=== PATIENT | female | born 1960 | race Caucasian/White ===

== ENCOUNTER 2017-03-31 23:38 | Inpatient (IN) | payer OTHER ==
[~2017-03-31] VITALS: Ht 152.4 cm; Wt 63.0 kg
[~2017-03-31 23:38] MED LIST: ASPI-664 PO; DIPH25CA42 PO; DOCU-144 PO; ERGO500014 PO; ESCI5TAB10 PO; FLUT16SP17 NASAL; HYDR-762 PO; HYDR25SU23 PR; NITR-58 PO; POLY17PO6 PO; TRAM-40 PO; TRAZ50TA18 PO; ZOLP5TAB PO
[2017-04-01] MEDS ORDERED: ONDANSETRON 4 MG INJ IV STA (00:33)
[2017-04-01] MEDS ORDERED: morphine 4 MG/ML VIAL IV STA (00:33)
--- NOTE | 2017-04-01 01:06 | RADRPT ---
PROCEDURE: CHEST - 1 VIEW CLINICAL INDICATION: 56-year-old female with chest pain. TECHNIQUE: A single frontal AP semi-erect portable view of the chest was performed. The images we re reviewed on a PACS workstation. COMPARISON: CR CHEST 01/31/2016; CR PORTABLE CHEST 05/16/2008 FINDINGS: The cardiomediastinal silhouette is within normal limits. There is linear subsegmental atelectasis w ithin the left lower lung zone. There is no evidence for an infiltrate. There is no evidence for c ongestive heart failure. There is no evidence for pneumothorax. The osseous structures are intact. IMPRESSION: Linear left lower lung zone subsegmental atelectasis. .Pollo Weaver MD, MD Date Time Electronically viewed and signed by .Pollo Weaver MD, on 04/01/2017 01:06 .Marques/
[2017-04-01] MEDS ORDERED: HYDROmorphONE 1 MG/ML SYG IV STA (01:07)
[2017-04-01 01:30] LABS: BASOPHILS % 0.2 % (0.0-2.0); EOSINOPHILS # 0.2 10^3/ul (0.0-0.5); EOSINOPHILS % 2.9 % (0.0-7.0); HEMATOCRIT 36.5 % (37.0-47.0); HEMOGLOBIN 12.2 g/dl (12.0-16.0); LYMPHOCYTES # 1.5 10^3/ul (0.8-2.9); LYMPHOCYTES % 23.5 % (15.0-51.0); MEAN CORPUSCULAR HGB CONC 33.4 g/dl (32.0-37.0); MEAN CORPUSCULAR VOLUME 98.6 fl (82.0-101.0); MEAN PLATELET VOLUME 10.4 fl (7.4-10.4); MONOCYTE # 0.6 10^3/ul (0.3-0.9); MONOCYTES % 8.4 % (0.0-11.0); NEUTROPHIL # 4.2 10^3/ul (1.6-7.5); NEUTROPHILS % 64.7 % (39.0-77.0); PLATELET COUNT 265 10^3/UL (140-415); RED CELL DISTRIBUTION WIDTH 12.4 % (11.5-14.5); WHITE BLOOD COUNT 6.6 10^3/ul (4.8-10.8)
--- NOTE | 2017-04-01 01:52 | RADRPT ---
PROCEDURE: US left lower extremity venous Doppler CLINICAL INDICATION: Swelling TECHNIQUE: Multiple sonographic images of the left lower extremity deep venous system was obtained utilizing grayscale, color-flow, compressive sonography and Doppler imaging with augmentation. COMPARISON: No pertinent prior examinations were submitted for comparison. FINDINGS: There is normal compressibility and flow within the left common femoral, superficial femoral, poplit eal, and calf veins. IMPRESSION: No sonographic evidence for left deep venous thrombosis. RPTAT: HIKT .Ramon Patel MD, MD Date Time Electronically viewed and signed by .Ramon Patel MD, on 04/01/2017 01:52 .T/
[2017-04-01] MEDS ORDERED: PIPER-TAZO 3.375 GM IV (PMX) 50 ML IVPB STA (02:15)
[2017-04-01 02:17] LABS: ALANINE AMINOTRANSFERASE 21 IU/L (13-69); ALBUMIN 4.1 g/dl (3.3-4.9); ALBUMIN/GLOBULIN RATIO 1.24; ALKALINE PHOSPHATASE 70 IU/L (42-121); ANION GAP 12 (8-16); ASPARTATE AMINO TRANSFERASE 25 IU/L (15-46); BILIRUBIN,INDIRECT 0.2 mg/dl (0-1.1); BILIRUBIN,TOTAL 0.2 mg/dl (0.2-1.3); BLOOD UREA NITROGEN 16 mg/dl (7-20); CALCIUM 9.1 mg/dl (8.4-10.2); CARBON DIOXIDE 29 mmol/L (21-31); CHLORIDE 108 mmol/L (97-110); CREATININE 0.78 mg/dl (0.44-1.00); GLUCOSE 99 mg/dl (70-220); POTASSIUM 3.8 mmol/L (3.5-5.1); SODIUM 145 mmol/L (135-144); TOTAL PROTEIN 7.4 g/dl (6.1-8.1)
--- NOTE | 2017-04-01 02:26 | ERD ---
ER Documentation Chief Complaint Chief Complaint LF UPPER THIGH SWELLING WITH BURNING PAIN X 3 DAYS, HX OF CANCER HPI 48-year-old female left upper thigh swelling and burning pain for 3 days. Patient is at his has been coming on over the past few weeks. Now it is erythematous and indurated and red in the upper thigh. No fevers or chills. No nausea no vomiting. No trauma. No other current complaints. Patient has remote history of ovarian cancer. ROS All systems reviewed and are negative except as per history of present illness. Medications Home Meds Active Scripts Nitrofurantoin Monohyd Macrocr* (Macrobid*) 100 Mg Capsr, 100 MG PO BID for 7 Days, CAP Prov:BEAR PEÑA NP 03/15/16 Hydrocortisone Acetate (Anusol-Hc) 25 Mg Supp.rect, 1 SUPP NM QHS Y for HEMORROID PAIN/ITCHING, #12 SUPP.RECT Prov:BEAR PEÑA NP 03/15/16 Docusate Sodium* (Colace*) 100 Mg Capsule, 100 MG PO TID, #30 CAP Prov:BEAR PEÑA NP 03/15/16 Polyethylene Glycol* (Miralax*) 17 Gm Powd.pack, 17 GM PO DAILY, #7 Prov:BEAR PEÑA NP 03/15/16 Aspirin* (Aspirin* EC) 81 Mg Tablet.dr, 162 MG PO DAILY for 30 Days, #30 TAB Prov:JONI GOLDMAN S. 02/02/16 Tramadol Hcl* (Ultram*) 50 Mg Tablet, 50 MG PO Q12 Y for PAIN for 30 Days, #60 TAB Prov:JONI GOLDMAN S. 02/02/16 Reported Medications Fluticasone Propionate* (Fluticasone Propionate* Nasal) 50 Mcg/[place] - 16 Gm [place].susp, 1 SPRAY NASAL BID, #1 BOTTLE TO EACH NOSTRIL 01/31/16 Diphenhydramine Hcl (Banophen) 25 Mg Capsule, 25 MG PO DAILY, CAP 01/31/16 Trazodone Hcl* (Trazodone Hcl*) 50 Mg Tablet, 50 MG PO QHS, #30 TAB 01/31/16 Ergocalciferol* (Drisdol* (Vitamin D2)) 50,000 Unit Capsule, 59174 UNIT PO Q7D, CAP 01/31/16 Escitalopram Oxalate* (Escitalopram Oxalate*) 5 Mg Tablet, 5 MG PO DAILY, #30 TAB 01/31/16 Zolpidem Tartrate* (Ambien*) 5 Mg Tablet, 5 MG PO QHS Y for INSOMNIA, #30 TAB 05/02/15 Hydrocodone Bit-Acetaminophen* ([place]*) 10-325 Mg Tablet, 1 TAB PO DAILY Y for PAIN, TAB 05/02/15 Allergies Allergies: Coded Allergies: morphine (Unverified Allergy, Severe, HALLUCINATION, 04/01/17) PMhx/Soc History of Surgery: Yes (OVARIES REMOVED S/P CANCER) Anesthesia Reaction: No Hx Neurological Disorder: No Hx Respiratory Disorders: No Hx Cardiac Disorders: No Hx Psychiatric Problems: No Hx Miscellaneous Medical Probl: Yes (INSOMNIA, HTN) Hx Alcohol Use: No Hx Substance Use: No Hx Tobacco Use: No Smoking Status: Never smoker Physical Exam Vitals Vital Signs Date Time Temp Pulse Resp B/P Pulse Ox O2 Delivery O2 Flow Rate FiO2 04/01/17 01:38 98.1 83 17 124/72 100 Room Air 04/01/17 00:30 Nasal Cannula 2 03/31/17 23:47 97.6 73 20 149/67 99 Physical Exam Const: [] Head: Atraumatic Eyes: Normal Conjunctiva ENT: Normal External Ears, Nose and Mouth. Neck: Full range of motion..~ No meningismus. Resp: Clear to auscultation bilaterally Cardio: Regular rate and rhythm, no murmurs Abd: Soft, non tender, non distended. Normal bowel sounds Skin: No petechiae or rashes Back: No midline or flank tenderness Ext: No cyanosis, or edema Neur: Awake and alert Psych: Normal Mood and Affect Result Diagram: 04/01/17 0115 Results 24 hrs Laboratory Tests Test 04/01/17 01:15 White Blood Count 6.610^3/ul Red Blood Count 3.7010^6/ul Hemoglobin 12.2g/dl Hematocrit 36.5% Mean Corpuscular Volume 98.6fl Mean Corpuscular Hemoglobin 33.0pg Mean Corpuscular Hemoglobin Concent 33.4g/dl Red Cell Distribution Width 12.4% Platelet Count 87433^3/UL Mean Platelet Volume 10.4fl Neutrophils % 64.7% Lymphocytes % 23.5% Monocytes % 8.4% Eosinophils % 2.9% Basophils % 0.2% Nucleated Red Blood Cells % 0.0/100WBC Neutrophils # 4.210^3/ul Lymphocytes # 1.510^3/ul Monocytes # 0.610^3/ul Eosinophils # 0.210^3/ul Basophils # 0.010^3/ul Nucleated Red Blood Cells # 0.010^3/ul Current Medications Medications (Trade) Dose Ordered Sig/Antonino Route PRN Reason Start Time Stop Time Status Last Admin Dose Admin Morphine Sulfate (morphine) 4 mg ONCE STAT IV 04/01/17 00:33 04/01/17 01:08 DC Ondansetron HCl (Zofran Inj) 4 mg ONCE STAT IV 04/01/17 00:33 04/01/17 00:34 DC 04/01/17 01:21 Hydromorphone HCl 1 mg 1 mg ONCE STAT IV 04/01/17 01:07 04/01/17 01:08 DC 04/01/17 01:21 Vancomycin HCl 250 ml @ 125 mls/hr ONCE ONCE IVPB 04/01/17 02:30 04/01/17 04:29 Piperacillin Sod/ Tazobactam Sod (Zosyn 3.375gm/ 50 ml (Pmx)) 50 ml @ 100 mls/hr ONCE STAT IVPB 04/01/17 02:15 04/01/17 02:44 Procedures/MDM EKG: Rate/Rhythm: [Normal Sinus Rhythm] QRS, ST, T-waves: [No changes consistent w/ acute ischemia] Impression: [No evidence of ischemia or arrhythmia] Chest X-ray 1V Interpreted by me: Soft Tissue: No acute abnormalities Bones: No acute abnormalities Mediastinum/Cardiac Silhouette/Lungs: [No acute abnormalities] Medical decision-makin-year-old female left upper thigh swelling erythema induration. No evidence of DVT on ultrasound. Likely cellulitis. Started on intravenous antibiotics given the extent of the cellulitis and the extent of induration. Patient will be admitted. Culture sent before antibiotics started. Departure Diagnosis: Primary Impression: Cellulitis Site of cellulitis: unspecified site Qualified Code: L03.90 - Cellulitis, unspecified cellulitis site Condition: Serious WILIAN BRADLEYEmely Apr 01, 2017 02:26
[2017-04-01 02:28] LABS: B-TYPE NATRIURETIC PEPTIDE 402 PG/ML (0-125)
[2017-04-01] MEDS ORDERED: VANCOMYCIN 1 GM (PMX) 250 ML IVPB ONE (02:30)
[2017-04-01 02:51] LABS: TROPONIN-I < 0.012 ng/ml (0.00-0.12)
[2017-04-01 02:59] VITALS: TEMP 98.6
[2017-04-01 03:57] VITALS: Ht 152.4 cm; Wt 63.0 kg
[2017-04-01 04:04] VITALS: BP 134/77; PULSE 77; RESP 16
[2017-04-01] MEDS ORDERED: ALBUTEROL/IPRATROPIUM (NEB) 3 ML AMP HHN PRN (04:30)
[2017-04-01] MEDS ORDERED: HYDROCORTISONE 25 MG SUPP PR PRN (04:30)
[2017-04-01] MEDS ORDERED: NACL 0.9% 3 ML SYG IV SCH (04:30)
[2017-04-01] MEDS ORDERED: ONDANSETRON 4 MG INJ IV PRN (04:30)
[2017-04-01] MEDS ORDERED: ACETAMINOPHEN 325 MG TAB PO PRN (04:30)
[2017-04-01] MEDS ORDERED: ZOLPIDEM 5 MG TAB PO PRN (04:30)
[2017-04-01] MEDS ORDERED: traMADol 50 MG TAB PO PRN (04:30)
[2017-04-01] MEDS ORDERED: morphine 2 MG INJ IV PRN (04:30)
[2017-04-01] MEDS ORDERED: VANCOMYCIN IV PER PHARMACY XX SCH (04:30)
[2017-04-01] MEDS: HYDROCODONE/APAP (10/325) TAB PO PRN ×3 (06:10→19:34)
--- NOTE | 2017-04-01 06:50 | HP ---
Date/Time of Note Date/Time of Note DATE: 04/01/17 TIME: 06:47 Assessment/Plan VTE Prophylaxis VTE Prophylaxis Intervention: heparin Lines/Catheters IV [facility]from [facility] Saline Lock Urinary Cath still in place: No Assessment/Plan Assessment/Plan ASSESSMENT 56-year-old female with a history of hypertension, ovarian cancer status post surgery over 10 years ago, depression here was left thigh cellulitis PLAN IV antibiotic Follow-up culture results will order CT abd/pelvis to eval for possible lymphedema or recurrence of cancer. Pain management Continue home medications adjustment as needed HPI/ROS Admit Date/Time Admit Date/Time Apr 01, 2017 at 02:42 Hx of Present Illness This is a 56-year-old female with a history of hypertension, ovarian cancer status post surgery over 10 years ago, depression who presented to the ER complaining of left upper thigh swelling, pain and redness. This has been progressively getting worse for the past few weeks. She is accompanied by her daughter. Initially they said, symptom started few days ago, but upon further questioning, they said swelling started 5 months ago. They were awaiting "insurance approval to get ultrasound". She denied fever, chills, nausea, vomiting, chest pain or shortness of breath. She denied trauma to her thigh. When she presented to the ER, vitals were stable. Labs shows a sodium of 145 otherwise CBC and CMP are within normal limits. Left lower extremity Doppler ultrasound was negative for DVT. PMH/Family/Social Social History Smoking Status: Never smoker Exam/Review of Systems Vital Signs Vitals Vital Signs Date Time Temp Pulse Resp B/P Pulse Ox O2 Delivery O2 Flow Rate FiO2 04/01/17 04:04 98.0 77 16 134/77 98 Room Air 04/01/17 00:30 2 Intake and Output 03/31/17 03/31/17 04/01/17 15:00 23:00 07:00 Intake Total 300 ml Balance 300 ml Exam Constitutional: alert, oriented, well developed Head: atraumatic, normocephalic Eyes: EOMI, PERRL Respiratory: clear to auscultation, normal air movement Cardiovascular: nl pulses, regular rate and rhythm Gastrointestinal: non-tender, soft Extremities: other (Left upper thigh erythema, swelling and tenderness) Labs Result Diagram: 04/01/1711404/01/17114 Medications Medications Current Medications Ondansetron HCl (Zofran Inj) 4 mg Q6H PRN IV NAUSEA AND/OR VOMITING; Start at 04:30 Acetaminophen (Tylenol Tab) 650 mg Q6H PRN PO PAIN LEVEL 1-3 OR FEVER; Start 04/01/17 at 04:30 Morphine Sulfate (morphine) 2 mg Q4H PRN IV SEVERE PAIN LEVEL 7-10; Start at 04:30 Enoxaparin Sodium (Lovenox) 40 mg DAILY SC ; Start 04/01/17 at 09:00 Aspirin (Halfprin) 162 mg DAILY PO ; Start 04/01/17 at 09:00 Docusate Sodium (Colace) 100 mg TID PO ; Start 04/01/17 at 09:00 Escitalopram Oxalate (Lexapro) 5 mg DAILY PO ; Start 04/01/17 at 09:00 Fluticasone Propionate (Flonase 0.05% Nasal) 1 spray BID NASAL ; Start at 09:00 Tramadol HCl (Ultram) 50 mg Q12 PRN PO PAIN; Start 04/01/17 at 04:30 Trazodone HCl (Desyrel) 50 mg QHS PO ; Start 04/01/17 at 21:00 Zolpidem Tartrate 5 mg 5 mg QHS PRN PO INSOMNIA; Start 04/01/17 at 04:30 Cefepime HCl (Maxipime 1gm/50 ml (Pmx)) 50 ml @ 100 mls/hr Q12 IVPB ; Start at 09:00 Acetaminophen/ Hydrocodone Bitart ([place] (10325)) 1 tab Q6H PRN PO PAIN Last administered on 04/01/17 06:10; Admin Dose 1 TAB; Start 04/01/17 at 04:30 Hydrocortisone (Anusol-Hc Supp) 25 mg QHS PRN [place] HEMORROID PAIN/ITCHING; Start 04/01/17 at 04:30 WILIAN ALVARENGA MD Apr 01, 2017 06:50
[2017-04-01 07:50] VITALS: BP 148/69; PULSE 73; RESP 16
[2017-04-01] MEDS: DOCUSATE SODIUM 100 MG CAP PO SCH ×3 (08:20→20:39)
[2017-04-01] MEDS: ENOXAPARIN 40 MG/0.4 ML SYG SC SCH (08:20)
[2017-04-01] MEDS: ASPIRIN (EC) 81 MG TAB PO SCH (08:20)
[2017-04-01] MEDS: FLUTICASONE 0.05% 16 GM NAS SPRAY NASAL SCH ×2 (08:21→21:52)
[2017-04-01] MEDS: ESCITALOPRAM 10 MG TAB PO SCH (08:21)
[2017-04-01] MEDS ORDERED: CEFEPIME 1GM/50 ML (PMX) 50 ML IVPB SCH (09:00)
[2017-04-01 09:10] VITALS: BP 148/69; RESP 16
[2017-04-01] MEDS ORDERED: BARIUM SULF 2% 450 ML BTL (BERRY SMOOTHIE) PO ONE (12:00)
[2017-04-01 14:15] VITALS: BP 121/62; RESP 18
--- NOTE | 2017-04-01 14:43 | PN ---
Date/Time of Note Date/Time of Note DATE: 04/01/17 TIME: 14:40 Assessment/Plan VTE Prophylaxis VTE Prophylaxis Intervention: SCD's Lines/Catheters IV Catheter Type (from Nrs): Saline Lock Urinary Cath still in place: No Assessment/Plan Assessment/Plan 56 yo F with pmhx ovarian cancer presented with LLE erythema, concerning for cellulitis v other (ie complication of malignancy) PLAN narrow abx await CT results cont home meds Subjective 24 Hr Interval Summary Free Text/Dictation LE erythema almost fully resolved per pt's daughter Exam/Review of Systems Vital Signs Vitals Vital Signs Date Time Temp Pulse Resp B/P Pulse Ox O2 Delivery O2 Flow Rate FiO2 04/01/17 14:15 97.6 73 18 121/62 97 04/01/17 07:50 Room Air 04/01/17 00:30 2 Intake and Output 03/31/17 03/31/17 04/01/17 15:00 23:00 07:00 Intake Total 300 ml Balance 300 ml Exam nad no mrg lungs clear abd soft LLE with mild diffuse swelling of L upper thigh, no erythema imaging pending Results Result Diagram: 04/01/1711404/01/17 011 Results 24 hrs Laboratory Tests Test 04/01/17 01:15 White Blood Count 6.6 Red Blood Count 3.70 L Hemoglobin 12.2 Hematocrit 36.5 L Mean Corpuscular Volume 98.6 Mean Corpuscular Hemoglobin 33.0 Mean Corpuscular Hemoglobin Concent 33.4 Red Cell Distribution Width 12.4 Platelet Count 265 Mean Platelet Volume 10.4 Neutrophils % 64.7 Lymphocytes % 23.5 Monocytes % 8.4 Eosinophils % 2.9 Basophils % 0.2 Nucleated Red Blood Cells % 0.0 Neutrophils # 4.2 Lymphocytes # 1.5 Monocytes # 0.6 Eosinophils # 0.2 Basophils # 0.0 Nucleated Red Blood Cells # 0.0 Sodium Level 145 H Potassium Level 3.8 Chloride Level 108 Carbon Dioxide Level 29 Anion Gap 12 Blood Urea Nitrogen 16 Creatinine 0.78 Glucose Level 99 Calcium Level 9.1 Total Bilirubin 0.2 Direct Bilirubin 0.00 Indirect Bilirubin 0.2 Aspartate Amino Transf (AST/SGOT) 25 Alanine Aminotransferase (ALT/SGPT) 21 Alkaline Phosphatase 70 Troponin I < 0.012 B-Type Natriuretic Peptide 402 H Total Protein 7.4 Albumin 4.1 Globulin 3.30 H Albumin/Globulin Ratio 1.24 Medications Medications Current Medications Ondansetron HCl (Zofran Inj) 4 mg Q6H PRN IV NAUSEA AND/OR VOMITING; Start at 04:30 Acetaminophen (Tylenol Tab) 650 mg Q6H PRN PO PAIN LEVEL 1-3 OR FEVER; Start 04/01/17 at 04:30 Morphine Sulfate (morphine) 2 mg Q4H PRN IV SEVERE PAIN LEVEL 7-10; Start at 04:30 Enoxaparin Sodium (Lovenox) 40 mg DAILY SC Last administered on 04/01/17 08: 20; Admin Dose 40 MG; Start 04/01/17 at 09:00 Aspirin (Halfprin) 162 mg DAILY PO Last administered on 04/01/17 08:20; Admin Dose 162 MG; Start 04/01/17 at 09:00 Docusate Sodium (Colace) 100 mg TID PO Last administered on 04/01/17 14:10; Admin Dose 100 MG; Start 04/01/17 at 09:00 Escitalopram Oxalate (Lexapro) 5 mg DAILY PO Last administered on 04/01/17 08 :21; Admin Dose 5 MG; Start 04/01/17 at 09:00 Fluticasone Propionate (Flonase 0.05% Nasal) 1 spray BID NASAL Last administered on 04/01/17 08:21; Admin Dose 1 SPRAY; Start 04/01/17 at 09:00 Tramadol HCl (Ultram) 50 mg Q12 PRN PO PAIN; Start 04/01/17 at 04:30 Trazodone HCl (Desyrel) 50 mg QHS PO ; Start 04/01/17 at 21:00 Zolpidem Tartrate (Ambien) 5 mg QHS PRN PO INSOMNIA; Start 04/01/17 at 04:30 Acetaminophen/ Hydrocodone Bitart ([place] (10/325)) 1 tab Q6H PRN PO PAIN Last administered on 04/01/17 12:21; Admin Dose 1 TAB; Start 04/01/17 at 04:30 Hydrocortisone (Anusol-Hc Supp) 25 mg QHS PRN [place] HEMORROID PAIN/ITCHING; Start 04/01/17 at 04:30 Cephalexin (Keflex) 500 mg Q12 PO ; Start 04/01/17 at 14:30 FLORI MACARIO MD Apr 01, 2017 14:43
[2017-04-01] MEDS ORDERED: VANCOMYCIN 750 MG in DEXTROSE 5% 150 ML IVPB SCH (15:00)
[2017-04-01] MEDS: CEPHALEXIN 500 MG CAP PO SCH ×2 (15:28→21:52)
[2017-04-01 19:47] VITALS: BP 117/59; RESP 20
[2017-04-01] MEDS ORDERED: IOHEXOL 300MG/ML 150 ML BTL ONE (20:14)
[2017-04-01] MEDS ORDERED: SOD CHLORIDE 0.9% 100 ML ONE (20:14)
[2017-04-01] MEDS ORDERED: traZODone 50 MG TAB PO SCH (21:00)
--- NOTE | 2017-04-02 01:48 | RADRPT ---
PROCEDURE: CT ABDOMEN AND PELVIS WITH CONTRAST CLINICAL INDICATION: 56 years of age, female. Evaluate for masses and lymphadenopathy. TECHNIQUE: CT of the abdomen and pelvis was performed following administration of 90 mL IV Omnipaqu e-300. Oral contrast was not administered prior to the examination. Coronal and sagittal reformatted images were obtained from the axial source images. Images were revi ewed on a high-resolution PACS workstation. DICOM images are available. Dose information: Based on a 32 cm phantom, the estimated radiation dose (CTDIvol mGy for each serie s in this exam is 15. The estimated cumulative dose (DLP mGy-cm) is 835. One or more of the following dose reduction techniques were used: - Automated exposure control. - Adjustment of the mA and/or kV according to patient size. - Use of iterative reconstruction technique. COMPARISON: March 15, 2016 FINDINGS: LUNG BASES: Normal. ABDOMEN/PELVIS: Liver: Normal. Portal veins, splenic vein and SMV are patent. Hepatic veins are patent. Gallbladder: Normal. Bile ducts: No intrahepatic or extrahepatic biliary duct dilatation. Spleen: Normal. Pancreas: Normal. Adrenal glands: 1.6 cm nodule right adrenal gland is unchanged from prior exam. Noncontrast attenuat ion coefficient on previous exam was 6 HU in keeping with a lipid rich adenoma. Left adrenal gland i s normal. Kidneys and ureters: Sub centimeter hypodensity lower pole right kidney likely represents a cyst. Ki dneys otherwise enhance normally. Negative for urinary calculi or hydronephrosis. Aorta and IVC: Mild atherosclerosis aorta. No aneurysm. IVC is patent. Evaluation of the iliac veins and femoral veins is limited due to phase of contrast injection. Lymph nodes: There are surgical clips in bilateral pelvic sidewalls from lymph node dissection. No e nlarged lymph nodes are identified in the abdomen and pelvis. Mildly prominent inguinal lymph nodes with fatty cinthya are unchanged from prior exam. Sample left inguinal lymph node measures 1.1 cm in sh ort axis and previously measured 1.1 cm in short axis (). Gastrointestinal tract: Bowel loops are decompressed and appear normal. Appendix: Not visualized. Bladder: Mild thickening of the right wall of the urinary bladder is similar to prior exam. Bladder is moderately full . Pelvic Organs: Uterus and ovaries are absent. Extraperitoneal compartment: There are coarse calcifications in the extraperitoneal fat of the righ t pelvis that are unchanged and likely dystrophic. Peritoneal cavity: No free fluid or free intraperitoneal air. Abdominal wall: There is mild subcutaneous edema in the left thigh. Mild soft tissue gas left anteri or abdominal wall is likely from subcutaneous injection. BONES: Musculoskeletal: Mild arthritis bilateral sacroiliac joints with subchondral sclerosis. No suspiciou s bone lesions. IMPRESSION: 1. Surgical clips bilateral pelvic sidewalls from lymph node dissection. Negative for enlarged lymp h nodes in the abdomen and pelvis. Mildly prominent bilateral inguinal lymph nodes with fatty cinthya a re unchanged from prior exam. 2. Mild thickening of the right wall of the urinary bladder is similar to prior exam. Uterus and ova camila are absent. 3. Nonspecific edema in the subcutaneous fat of the anterior left thigh. Please note that evaluation of the iliac and femoral veins for patency is limited due to timing of contrast bolus. The patient recently had a left leg venous Doppler. Please refer to that report. RPTAT: HCTS Physician Alison Date Time Electronically viewed and signed by Teagan Lee Physician on 04/02/2017 01:48 CS/
[2017-04-02 02:09] VITALS: BP 91/54; RESP 20
[2017-04-02 05:42] LABS: BASOPHILS % 0.2 % (0.0-2.0); EOSINOPHILS # 0.2 10^3/ul (0.0-0.5); EOSINOPHILS % 4.9 % (0.0-7.0); HEMATOCRIT 34.9 % (37.0-47.0); HEMOGLOBIN 11.5 g/dl (12.0-16.0); LYMPHOCYTES # 1.3 10^3/ul (0.8-2.9); LYMPHOCYTES % 28.9 % (15.0-51.0); MEAN CORPUSCULAR HEMOGLOBIN 32.5 pg (29.0-33.0); MEAN CORPUSCULAR VOLUME 98.6 fl (82.0-101.0); MEAN PLATELET VOLUME 10.3 fl (7.4-10.4); MONOCYTE # 0.4 10^3/ul (0.3-0.9); MONOCYTES % 8.1 % (0.0-11.0); NEUTROPHIL # 2.6 10^3/ul (1.6-7.5); NEUTROPHILS % 57.7 % (39.0-77.0); PLATELET COUNT 222 10^3/UL (140-415); RED BLOOD COUNT 3.54 10^6/ul (4.20-5.40); RED CELL DISTRIBUTION WIDTH 12.4 % (11.5-14.5); WHITE BLOOD COUNT 4.5 10^3/ul (4.8-10.8)
[2017-04-02 06:08] LABS: ALBUMIN 3.2 g/dl (3.3-4.9); BILIRUBIN,INDIRECT 0.3 mg/dl (0-1.1); BILIRUBIN,TOTAL 0.3 mg/dl (0.2-1.3); CALCIUM 8.5 mg/dl (8.4-10.2); CREATININE 0.68 mg/dl (0.44-1.00); MAGNESIUM 1.9 mg/dl (1.7-2.5); PHOSPHORUS 3.7 mg/dl (2.5-4.9); TOTAL PROTEIN 6.4 g/dl (6.1-8.1)
[2017-04-02 07:38] VITALS: BP 92/49; RESP 20
[2017-04-02] MEDS: CEPHALEXIN 500 MG CAP PO SCH (08:08)
[2017-04-02] MEDS: ESCITALOPRAM 10 MG TAB PO SCH (08:08)
[2017-04-02] MEDS: DOCUSATE SODIUM 100 MG CAP PO SCH ×2 (08:08→14:44)
[2017-04-02] MEDS: HYDROCODONE/APAP (10/325) TAB PO PRN ×2 (08:08→14:50)
[2017-04-02] MEDS: ASPIRIN (EC) 81 MG TAB PO SCH (08:09)
[2017-04-02] MEDS: FLUTICASONE 0.05% 16 GM NAS SPRAY NASAL SCH (08:09)
[2017-04-02] MEDS: ENOXAPARIN 40 MG/0.4 ML SYG SC SCH (08:21)
[2017-04-02 13:55] VITALS: BP 102/53; RESP 20
[2017-04-02] MEDS ORDERED: CEPH500C PO (15:15)
--- NOTE | 2017-04-02 15:16 | PDOCDIS ---
Discharge Instructions CONDITION Patient Condition: Stable HOME CARE INSTRUCTIONS: Special Diet: regular FOLLOW UP/APPOINTMENTS Follow-up Plan Follow up with your regular doctor within 7 days FLORI MACARIO MD Apr 02, 2017 15:16
--- NOTE | 2017-04-02 15:22 | DS ---
Date/Time of Note Date/Time of Note DATE: 04/02/17 TIME: 15:17 Discharge Summary Admission/Discharge Info Admit Date/Time Apr 01, 2017 at 02:42 Discharge Date/Time Discharge Diagnosis L thigh cellulitis Patient Condition: Stable Procedures venous doppler LLE: no DVT CT AP IMPRESSION: 1. Surgical clips bilateral pelvic sidewalls from lymph node dissection. Negative for enlarged lymph nodes in the abdomen and pelvis. Mildly prominent bilateral inguinal lymph nodes with fatty cinthya are unchanged from prior exam. 2. Mild thickening of the right wall of the urinary bladder is similar to prior exam. Uterus and ovaries are absent. 3. Nonspecific edema in the subcutaneous fat of the anterior left thigh. Please note that evaluation of the iliac and femoral veins for patency is limited due to timing of contrast bolus. The patient recently had a left leg venous Doppler. Please refer to that report. Hx of Present Illness This is a 56-year-old female with a history of hypertension, ovarian cancer status post surgery over 10 years ago, depression who presented to the ER complaining of left upper thigh swelling, pain and redness. This has been progressively getting worse for the past few weeks. She is accompanied by her daughter. Initially they said, symptom started few days ago, but upon further questioning, they said swelling started 5 months ago. They were awaiting "insurance approval to get ultrasound". She denied fever, chills, nausea, vomiting, chest pain or shortness of breath. She denied trauma to her thigh. When she presented to the ER, vitals were stable. Labs shows a sodium of 145 otherwise CBC and CMP are within normal limits. Left lower extremity Doppler ultrasound was negative for DVT. Hospital Course Pt admitted for L leg erythema. Resolved shortly after admission. Imaging without evidence of DVT or new LAD. Pt presumptively diagnosed with cellulitis and discharged with PO keflex. copy of dc summary faxed to PCP's office and given to patient prior to discharge Home Meds Active Scripts Nitrofurantoin Monohyd Macrocr* (Macrobid*) 100 Mg Capsr, 100 MG PO BID for 7 Days, CAP Prov:BEAR PEÑA NP 03/15/16 Hydrocortisone Acetate (Anusol-Hc) 25 Mg Supp.rect, 1 SUPP [place] QHS Y for HEMORROID PAIN/ITCHING, #12 SUPP.RECT Prov:BEAR PEÑA NP 03/15/16 Docusate Sodium* (Colace*) 100 Mg Capsule, 100 MG PO TID, #30 CAP Prov:BEAR PEÑA NP 03/15/16 Polyethylene Glycol* (Miralax*) 17 Gm Powd.pack, 17 GM PO DAILY, #7 Prov:RODBEAR COHEN NP 03/15/16 Aspirin* (Aspirin* EC) 81 Mg Tablet.dr, 162 MG PO DAILY for 30 Days, #30 TAB Prov:JONI GOLDMAN S. 02/02/16 Tramadol Hcl* (Ultram*) 50 Mg Tablet, 50 MG PO Q12 Y for PAIN for 30 Days, #60 TAB Prov:JONI GOLDMAN S. 02/02/16 Reported Medications Fluticasone Propionate* (Fluticasone Propionate* Nasal) 50 Mcg/[place] - 16 Gm [place].susp, 1 SPRAY NASAL BID, #1 BOTTLE TO EACH NOSTRIL 01/31/16 Diphenhydramine Hcl (Banophen) 25 Mg Capsule, 25 MG PO DAILY, CAP 01/31/16 Trazodone Hcl* (Trazodone Hcl*) 50 Mg Tablet, 50 MG PO QHS, #30 TAB 01/31/16 Ergocalciferol* (Drisdol* (Vitamin D2)) 50,000 Unit Capsule, 89520 UNIT PO Q7D, CAP 01/31/16 Escitalopram Oxalate* (Escitalopram Oxalate*) 5 Mg Tablet, 5 MG PO DAILY, #30 TAB 01/31/16 Zolpidem Tartrate* (Ambien*) 5 Mg Tablet, 5 MG PO QHS Y for INSOMNIA, #30 TAB 05/02/15 Hydrocodone Bit-Acetaminophen* ([place]*) 10-325 Mg Tablet, 1 TAB PO DAILY Y for PAIN, TAB 05/02/15 Follow-up Plan Follow up with your regular doctor within 7 days Primary Care Provider Taurus Luis Time spent on discharge: > 30 minutes Pending Labs Laboratory Tests Test 04/02/17 05:10 White Blood Count 4.510^3/ul (4.8-10.8) Red Blood Count 3.5410^6/ul (4.20-5.40) Hemoglobin 11.5g/dl (12.0-16.0) Hematocrit 34.9% (37.0-47.0) Mean Corpuscular Volume 98.6fl (82.0-101.0) Mean Corpuscular Hemoglobin 32.5pg (29.0-33.0) Mean Corpuscular Hemoglobin Concent 33.0g/dl (32.0-37.0) Red Cell Distribution Width 12.4% (11.5-14.5) Platelet Count 09564^3/UL (140-415) Mean Platelet Volume 10.3fl (7.4-10.4) Neutrophils % 57.7% (39.0-77.0) Lymphocytes % 28.9% (15.0-51.0) Monocytes % 8.1% (0.0-11.0) Eosinophils % 4.9% (0.0-7.0) Basophils % 0.2% (0.0-2.0) Nucleated Red Blood Cells % 0.0/100WBC (0.0-0.0) Neutrophils # 2.610^3/ul (1.6-7.5) Lymphocytes # 1.310^3/ul (0.8-2.9) Monocytes # 0.410^3/ul (0.3-0.9) Eosinophils # 0.210^3/ul (0.0-0.5) Basophils # 0.010^3/ul (0.0-0.1) Nucleated Red Blood Cells # 0.010^3/ul (0.0-0.0) Sodium Level 142mmol/L (135-144) Potassium Level 4.0mmol/L (3.5-5.1) Chloride Level 109mmol/L (97-110) Carbon Dioxide Level 29mmol/L (21-31) Anion Gap 8 (8-16) Blood Urea Nitrogen 12mg/dl (7-20) Creatinine 0.68mg/dl (0.44-1.00) Glucose Level 93mg/dl (70-220) Calcium Level 8.5mg/dl (8.4-10.2) Phosphorus Level 3.7mg/dl (2.5-4.9) Magnesium Level 1.9mg/dl (1.7-2.5) Total Bilirubin 0.3mg/dl (0.2-1.3) Direct Bilirubin 0.00mg/dl (0.00-0.20) Indirect Bilirubin 0.3mg/dl (0-1.1) Aspartate Amino Transf (AST/SGOT) 21IU/L (15-46) Alanine Aminotransferase (ALT/SGPT) 25IU/L (13-69) Alkaline Phosphatase 56IU/L (42-121) Total Protein 6.4g/dl (6.1-8.1) Albumin 3.2g/dl (3.3-4.9) Globulin 3.20g/dl (1.3-3.2) Albumin/Globulin Ratio 1.00 FLORI MACARIO MD Apr 02, 2017 15:22
== END 2017-04-02 18:20 | disposition home or self-care (01) | DRG 603 ==
LOC: E/R 23:38 → MS2 04-01 02:42
PROVIDERS: ADMIT Internal Medicine; ATTEND Internal Medicine
DX: L03.116 Cellulitis of left lower limb (principal); I10 Essential (primary) hypertension; Z85.43 Personal history of malignant neoplasm of ovary; Z79.82 Long term (current) use of aspirin
CPT/HCPCS: 36415; 71010; 74177; 80053; 83735; 83880; 84100; 84484; 85025; 87040; 93005; 93971; 96365; 96368; 96375; J0692; J1170; J1650; J2405; J2543; J3370; Q9967

== ENCOUNTER 2017-06-11 22:51 | Emergency (ER) | END 2017-06-12 00:31 | disposition left against medical advice (07) ==

== ENCOUNTER 2018-05-21 23:12 | Emergency (ER) | payer OTHER ==
[~2018-05-21] VITALS: Ht 152.4 cm; Wt 65.0 kg
[~2018-05-21 23:12] MED LIST changes: -ASPI-664 PO; +ASPI-817 PO; +CEPH500C PO; -NITR-58 PO; -TRAM-40 PO; +TRAM50TA PO; +TRAZ-111 PO; -TRAZ50TA18 PO
[2018-05-21 23:15] VITALS: Ht 152.4 cm; Wt 65.0 kg
[2018-05-22] MEDS ORDERED: PIPER-TAZO 3.375 GM IV (PMX) 100 ML IVPB STA (01:18)
[2018-05-22] MEDS ORDERED: VANCOMYCIN 1 GM (PMX) 250 ML IVPB STA (01:18)
[2018-05-22] MEDS ORDERED: KETOROLAC 15 MG INJ IV STA (01:18)
--- NOTE | 2018-05-22 05:38 | ERD ---
ER Documentation Chief Complaint Chief Complaint delfin leg swelling L > R hx lymphadema + dizziness HPI This is a 58-year-old female history of lymphadenitis who comes in with points of increased lymphadenitis erythema and induration of her left lower extremity. History of multiple bouts of cellulitis. Denies fevers chills nausea vomiting. Denies any other current complaints. ROS All systems reviewed and are negative except as per history of present illness. Medications Home Meds Active Scripts Polyethylene Glycol* (Miralax*) 17 Gm Powd.pack, 17 GM PO DAILY, #7 Prov:BEAR PEÑA NP 03/15/16 Aspirin* (Aspirin* EC) 81 Mg Tablet.dr, 162 MG PO DAILY for 30 Days, #30 TAB Prov:JONI GOLDMAN 02/02/16 Reported Medications Fluticasone Propionate* (Fluticasone Propionate* Nasal) 50 Mcg/[place] - 16 Gm [place].susp, 1 SPRAY NASAL BID, #1 BOTTLE TO EACH NOSTRIL 01/31/16 Diphenhydramine Hcl (Banophen) 25 Mg Capsule, 25 MG PO DAILY, CAP 01/31/16 Ergocalciferol* (Drisdol* (Vitamin D2)) 50,000 Unit Capsule, 32442 UNIT PO QWED, CAP 01/31/16 Zolpidem Tartrate* (Ambien*) 5 Mg Tablet, 5 MG PO QHS PRN for INSOMNIA, #30 TAB 05/02/15 Hydrocodone Bit-Acetaminophen* ([place]*) 10-325 Mg Tablet, 1 TAB PO DAILY PRN for PAIN, TAB 05/02/15 Discontinued Reported Medications Trazodone Hcl* (Trazodone Hcl*) 50 Mg Tablet, 50 MG PO QHS, #30 TAB 01/31/16 Escitalopram Oxalate* (Escitalopram Oxalate*) 5 Mg Tablet, 5 MG PO DAILY, #30 TAB 01/31/16 Discontinued Scripts Cephalexin* (Cephalexin*) 500 Mg Capsule, 500 MG PO Q12 for 5 Days, #10 CAP Prov:FLORI MACARIO MD 04/02/17 Hydrocortisone Acetate (Anusol-Hc) 25 Mg Supp.rect, 1 SUPP [place] QHS PRN for HEMORROID PAIN/ITCHING, #12 SUPP.RECT Prov:BEAR PEÑA NP 03/15/16 Docusate Sodium* (Colace*) 100 Mg Capsule, 100 MG PO TID, #30 CAP Prov:BEAR PEÑA READ [employer] 03/15/16 Tramadol Hcl* (Ultram*) 50 Mg Tablet, 50 MG PO Q12 PRN for PAIN for 30 Days, #60 TAB Prov:JONI GOLDMAN. 02/02/16 Allergies Allergies: Coded Allergies: morphine (Unverified Allergy, Severe, HALLUCINATION, 05/21/18) PMhx/Soc History of Surgery: Yes (BILATERAL OVARIES REMOVAL,) Anesthesia Reaction: No Hx Neurological Disorder: No Hx Respiratory Disorders: No Hx Cardiac Disorders: Yes (HTN) Hx Psychiatric Problems: No Hx Miscellaneous Medical Probl: Yes (OVARIAN CANCER, INSOMNIA, LLE CELLULITIS) Hx Alcohol Use: No Hx Substance Use: No Hx Tobacco Use: No Smoking Status: Never smoker Physical Exam Vitals Vital Signs Date Temp Pulse Resp B/P (MAP) Pulse Ox O2 O2 Flow FiO2 Time Delivery Rate 05/22/18 72 14 95/56 (69) 99 Room Air 02:56 05/22/18 72 13 97/69 (78) 99 Room Air 01:52 05/21/18 98.0 81 20 130/61 99 23:15 (84) Physical Exam Const: No acute distress Head: Atraumatic Eyes: Normal Conjunctiva ENT: Normal External Ears, Nose and Mouth. Neck: Full range of motion. No meningismus. Resp: Clear to auscultation bilaterally Cardio: Regular rate and rhythm, no murmurs Abd: Soft, non tender, non distended. Normal bowel sounds Skin: No petechiae or rashes Back: No midline or flank tenderness Ext: No cyanosis, or edema Neur: Awake and alert Psych: Normal Mood and Affect Result Diagram: 05/22/18 0140 05/22/18 0140 Results 24 hrs Laboratory Tests Test 05/22/18 01:40 White Blood Count 6.0 10^3/ul Red Blood Count 3.77 10^6/ul Hemoglobin 11.8 g/dl Hematocrit 36.5 % Mean Corpuscular Volume 96.8 fl Mean Corpuscular Hemoglobin 31.3 pg Mean Corpuscular Hemoglobin Concent 32.3 g/dl Red Cell Distribution Width 12.2 % Platelet Count 360 10^3/UL Mean Platelet Volume 9.5 fl Immature Granulocytes % 0.500 % Neutrophils % 66.4 % Lymphocytes % 20.3 % Monocytes % 7.8 % Eosinophils % 4.7 % Basophils % 0.3 % Nucleated Red Blood Cells % 0.0 /100WBC Immature Granulocytes # 0.030 10^3/ul Neutrophils # 4.0 10^3/ul Lymphocytes # 1.2 10^3/ul Monocytes # 0.5 10^3/ul Eosinophils # 0.3 10^3/ul Basophils # 0.0 10^3/ul Nucleated Red Blood Cells # 0.0 10^3/ul Sodium Level 139 mmol/L Potassium Level 4.2 mmol/L Chloride Level 100 mmol/L Carbon Dioxide Level 34 mmol/L Anion Gap 5 Blood Urea Nitrogen 10 mg/dl Creatinine 0.63 mg/dl Est Glomerular Filtrat Rate mL/min > 60 mL/min Glucose Level 103 mg/dl Calcium Level 9.0 mg/dl Total Bilirubin 0.1 mg/dl Direct Bilirubin 0.00 mg/dl Indirect Bilirubin 0.1 mg/dl Aspartate Amino Transf (AST/SGOT) 32 IU/L Alanine Aminotransferase (ALT/SGPT) 29 IU/L Alkaline Phosphatase 74 IU/L Troponin I < 0.012 ng/ml B-Type Natriuretic Peptide 328 PG/ML Total Protein 6.8 g/dl Albumin 3.8 g/dl Globulin 3.00 g/dl Albumin/Globulin Ratio 1.26 Current Medications Medications Dose Sig/Antonino Start Time Status Last (Trade) Ordered Route PRN Stop Time Admin Dose Reason Admin Vancomycin 250 ml @ ONCE STAT 05/22/18 DC 05/22/18 HCl 125 mls/hr IVPB 01:18 05/22/18 02:52 03:17 Piperacillin 100 ml @ ONCE STAT 05/22/18 DC 05/22/18 Sod/ 200 mls/hr IVPB 01:18 05/22/18 01:57 Tazobactam 01:47 Sod Ketorolac 15 mg ONCE STAT 05/22/18 DC 05/22/18 Tromethamine IV 01:18 05/22/18 01:57 (Toradol) 01:20 Procedures/MDM EKG: Rate/Rhythm: [Normal Sinus Rhythm] QRS, ST, T-waves: [No changes consistent w/ acute ischemia] Impression: [No evidence of ischemia or arrhythmia] Chest X-ray 1V Interpreted by me: Soft Tissue: No acute abnormalities Bones: No acute abnormalities Mediastinum/Cardiac Silhouette/Lungs: [No acute abnormalities] Medical decision makin-year female with severe cellulitis secondary lymphadenitis. Patient has been on antibiotics post cultures. Patient will be admitted. She will be transferred to [facility] she is capitated. [facility] accepted patient in transfer Departure Diagnosis: Primary Impression: Lymphadenitis Additional Impression: Cellulitis Site of cellulitis: unspecified site Qualified Codes: L03.90 - Cellulitis, unspecified Condition: Serious WILIAN BRADLEY May 22, 2018 05:38
[2018-05-22 06:56] VITALS: BP 102/67; PULSE 78; RESP 16
== END 2018-05-22 08:18 | disposition short-term general hospital (02) ==
LOC: E/R 23:12
DX: L04.3 Acute lymphadenitis of lower limb (principal); L03.90 Cellulitis, unspecified; R40.2142 Coma scale, eyes open, spontaneous, at arrival to emergency department; R40.2252 Coma scale, best verbal response, oriented, at arrival to emergency department; R40.2362 Coma scale, best motor response, obeys commands, at arrival to emergency department; I10 Essential (primary) hypertension; Z85.43 Personal history of malignant neoplasm of ovary; Z79.82 Long term (current) use of aspirin
CPT/HCPCS: 36415; 71045; 80053; 83880; 84484; 85025; 87040; 93005; 96374; 96375; J1885; J2543; J3370; Z7502